=== PATIENT | female | born 1930 | race Hispanic/Latino ===

== ENCOUNTER 2016-11-04 15:59 | Inpatient (IN) | payer MEDICARE, OTHER ==
[~2016-11-04] VITALS: Ht 149.9 cm; Wt 55.8 kg
[~2016-11-04 15:59] MED LIST: ALBU90AE IH; AMLO5TAB2 PO; ASPI81TA3 PO; ATOR20TA65 PO; Al Hydrox/Mg Hydrox/Simeth PO; CLOP75TA28 PO; GABA-502 PO; HYDR-4003 PO; LEVO250T45 PO; MELA5TAB14 PO; POLY17PO6 PO; SENN-133 PO
[2016-11-04 16:03] VITALS: BP 106/58; PULSE 108; RESP 22; O2SAT 81
--- NOTE | 2016-11-04 17:50 | DRSVH ---
PROCEDURE: X-RAY CHEST ONE VIEW, PORTABLE ([id number]) INDICATIONS: 86 year-old female with shortness of breath. TECHNIQUE: One view of the chest was acquired. COMPARISON: [facility], CR, XR CHEST 2VW, 08/18/2016, 15:59. FINDINGS: Surgical changes and devices: None. Lungs and pleura: No pleural effusions or pneumothorax. Lungs are clear. Mediastinum: Mediastinal contours appear normal. Cardiomegaly is unchanged. There is aortic atheros clerosis. Bones and chest wall: No suspicious bony lesions. Nonacute healed left humeral neck fracture is aga in noted. Overlying soft tissues appear unremarkable. IMPRESSION: Mild cardiomegaly, without acute cardiopulmonary disease. Dictated by: Kingston Rucker M.D. on 11/04/2016 at 17:49 Approved by: Kingston Rucker M.D. on 11/04/2016 at 17:49
[2016-11-04 18:15] LABS: BASOPHILS % (AUTO) 0.3 % (0-3); EOSINOPHILS % (AUTO) 0.9 % (0-5); MONOCYTES % (AUTO) 7.6 % (4-12); Mean Corpuscular Hemoglobin 31.8 pg (27.0-35.0); Mean Corpuscular Volume 103.3 fL (81-100); NEUTROPHILS % (AUTO) 77.7 % (40-74); Platelet Count 260 bil/L (150-400)
[2016-11-04 19:07] LABS: TROPONIN T < 0.010 ug/L (0.0-0.011)
[2016-11-04 20:09] VITALS: BP 103/61; PULSE 72; RESP 18; O2SAT 96
--- NOTE | 2016-11-04 20:42 | ED.REPORT ---
HPI-Dyspnea / Wheezing Date of Service Nov 04, 2016 ED Provider: Chriss Henley MD An 86 year old female with a history of dysphagia and recent pneumonia is brought to the ED by family due to cracking sound in her lungs. The pt was admitted for pneumonia four months ago and has been at [facility] for the three months since. She has been at home for the last several days, being seen regularly by a nurse. The pt was seen by her nurse yesterday and was prescribed Levaquin, which seemed to help some but not enough to resolve the crackles. When she was seen today, the nurse recommended that she be taken to the ED. The pt has been eating normally, but her nurse expressed concern for increasing aspirations despite dietary restrictions.The pt denies diaphoresis, dysuria, or shortness of breath in the ED. Per family, the pt appears pale, intermittently short of breath, and has a low grade fever of 99 degrees with chills. She is on 2 L of oxygen normally with two puffs from an inhaler as needed. The inhaler seems to help briefly, but does not relieve the pt's symptoms for long. Nursing Notes Stated Complaint: CRACKLING SOUND WITH BREATHING/SENT FROM NURS HOME Chief Complaint: Respiratory Complaints Nursing Notes Reviewed: Yes ([employer], [employer] not reconciled) Allergies: Coded Allergies: Penicillins (Verified Allergy, Unknown, 08/18/16) Scheduled Amlodipine (Amlodipine) 5 Mg Tablet 5 MG PO DAILY Aspirin Chew (Aspirin Chew) 81 Mg Chew 81 MG PO DAILY Atorvastatin Calcium (Atorvastatin Calcium) 20 Mg Tablet 20 MG PO HS Clopidogrel (Clopidogrel) 75 Mg Tablet 75 MG PO DAILY Gabapentin (Gabapentin) 300 Mg Capsule 300 MG PO TID Levofloxacin (Levofloxacin) 250 Mg Tablet 250 MG PO DAILY Scheduled PRN ([Al Hydrox/Mg Hydrox/Simeth]) 30 ML SUSP 30 ML PO Q6 PRN PRN For Dyspepsia or Heartburn Albuterol Sulfate (Proair Respiclick) 90 Mcg Aer.pow.ba 90 MCG IH QID PRN PRN For Shortness of Breath Hydrocodone-Acetaminophen 5-325 mg (Hydrocodone-Acetaminophen 5-325 mg) 1 Each Tablet 1 TABLET PO DAILY PRN PRN For Pain Melatonin (Melatonin) 5 Mg Tablet 5 MG PO HS PRN PRN For Sleep Polyethylene Glycol 3350 (Miralax) 17 Gm Powd.pack 17 GM PO DAILY PRN PRN For Constipation Sennosides (Senna) 8.6 Mg Tablet 17.2 MG PO BID PRN PRN For Constipation General Time Seen by MD: 20:31 Chief Complaint Other (Crackling breath sounds) Hx Obtained From: Other family... Sudden in Onset?: No Symptom Duration: Since onset Recent Healthcare: Recent doctor visit, Recent hospitalization Similar Sx Previous: Yes Past Medical History Past Medical History Dysphagia Frequent falls secondary to right ankle deformity Pneumonia Past Surgical History Endoscopy Smoking History Never Smoker Social History Other Social History: Good social support Review of Systems Review of Systems Note: pale Constitutional: Reports: Chills, Fever Respiratory: Reports: Shortness of breath (intermittent per family) Cardiovascular: Denies: Chest pain Musculoskeletal: Denies: Back pain, Neck pain Skin: Denies Rash Complete sys rev & neg: except as marked. Female: Denies: Dysuria Physical Exam Initial Vital Signs Vital Signs (First) Date Time Temp Pulse Resp B/P Pulse Ox O2 Delivery O2 Flow Rate FiO2 11/04/16 16:03 36.8 108 22 106/58 81 Room Air 11/04/16 20:09 2 Initial VS: Reviewed, Vital signs abnormal General/Constitutional: Awake, Alert globally weak extremely frail hacking cough Neck: Atraumatic, Supple, Full range of motion Respiratory / Chest: Atraumatic, Breath sounds = bilat, No respiratory distress scattered rhonchi no increased work of breathing Cardiovascular: Heart rate NL, Regular rhythm, Heart sounds NL ENT: Atraumatic, Airway patent, Mucous membranes moist Abdomen: Atraumatic, Soft, Non-tender Back: Atraumatic, Full range of motion Lower Extremity / Pelvis / MS: Atraumatic, Full range of motion, No edema Skin: Atraumatic, Color NL, No rash, Warm, Dry Neurologic: Oriented X3, Speech NL, No motor deficits, No sensory deficits Head / Eyes: Atraumatic, Normocephalic, PERRL, EOMI Upper Extremity / MS: Atraumatic, Full range of motion Psychiatric: Affect NL, Mood NL Interpretation & Diagnostics Lab Results Interpretation Result Diagram: 11/04/16 1750 11/04/16 1750 Test 11/04/16 17:50 11/04/16 18:10 White Blood Count 12.3th/mm3 (3.8-10.1) Red Blood Count 3.68mil/mm3 (3.90-5.20) Hemoglobin 11.7g/dL (12.0-15.6) Hematocrit 38.0% (35.0-46.0) Mean Corpuscular Volume 103.3fL (81-100) Mean Corpuscular Hemoglobin 31.8pg (27.0-35.0) Mean Corpuscular Hemoglobin Concent 30.8% (32.0-37.0) Red Cell Distribution Width 13.2% (12.3-15.4) Platelet Count 260bil/L (150-400) Neutrophils (%) (Auto) 77.7% (40-74) Lymphocytes (%) (Auto) 13.0% (14-46) Monocytes (%) (Auto) 7.6% (4-12) Eosinophils (%) (Auto) 0.9% (0-5) Basophils (%) (Auto) 0.3% (0-3) Sodium Level 144mEq/L (134-144) Potassium Level 4.6mEq/L (3.5-5.2) Chloride Level 103mEq/L (97-108) Carbon Dioxide Level 31mmol/L (18-29) Blood Urea Nitrogen 54mg/dL (8-27) Creatinine 1.57mg/dL (0.57-1.00) Estimat Glomerular Filtration Rate 45mL/min (>59) Glucose Level 99mg/dL (60-99) Calcium Level 9.1mg/dL (8.5-10.1) Total Bilirubin 0.4mg/dL (0.0-1.2) Aspartate Amino Transf (AST/SGOT) 11U/L (0-50) Alanine Aminotransferase (ALT/SGPT) 6U/L (0-32) Alkaline Phosphatase 55U/L (25-165) Troponin T < 0.010ug/L (0.0-0.011) Pro-B-Type Natriuretic Peptide 2407pg/mL (0-738) Total Protein 7.5g/dL (6.4-8.4) Albumin 2.9g/dL (3.4-5.0) Lactic Acid Level 1.1mmol/L (0.4-2.0) Hold Gaston Top Tube Received (Received) Lab Results Interpretation: CBC apositivie leukocytosis CMP mild renal insufficiency Blood Cultures 2 pending X-Ray Chest Interpretation Chest Xray Interpretation: IMPRESSION: Mild cardiomegaly, without acute cardiopulmonary disease. Dictated by: Kingston Rucker M.D. on 11/04/2016 at 17:49 Approved by: Kingston Rucker M.D. on 11/04/2016 at 17:49 Interpretation / Wet Read by: Interpret - Radiologist Re-Eval/Medical Decision Med Decision/Clinical Course This is an 86-year-old female since with increasing cough, shortness breath and concern for aspiration. Patient's apparently recently been seen by physical therapy for it has been a strong concern for progressive aspiration risk, she is now on thickened liquids and a neurology referral is about to be requested ( according to the family they have an appointment with the PCP on Friday of this week (the process of obtaining a neurology referral). Patient's been recovering at [facility] [place], and recently had a holiday the family, and prescription not entirely clear to me she still [facility] or the family at the present, but has had nursing checks daily and has been concerned about her developing a pneumonia recent cough so she was started on Levaquin yesterday. However she is still audibly wheezing, worsening cough, profound fatigue, ongoing concerns for aspiration, possibly a lower oxygen. She has been on oxygen in the past month or 2 L, but was not able to bring oxygen with her when she came to the emergency department, she was significantly hypoxic with a sat of 81 on arrival Exam she does have a cough, she is extremely frail in appearance. She is scattered rhonchi throughout. She is profoundly globally weak. Chest x-ray is limited, no definite infiltrate is evident. Motor is notable for positive leukocytosis. We will have street and findings are highly suspicious for ongoing pneumonia, with aspiration being high risk. The hospital protocol and Clinda plus Levaquin, so given the patient concerned Levaquin yesterday this is the regimen being started here now. She has been drawn. Being admitted for continued management. A formal speech evaluation may be required to facilitate neurology follow-up. Case has been discussed with hospitalist. Source of Hx: Old records Re-Evaluation/Progress : Time of Eval: 20:31 Patient Status: Condition unchanged Re-Evaluation/Progress Note: Pt informed of the need for admission during the initial interview. Pt and family understand and agree with the plan. All questions are addressed at this time. Consultation : Referral / Consult Name: Cherri Gonzalez MD Consulted With: Hospitalist Call Returned at: 20:54 Special Delivery Clerk: Agrees with eval, Agrees with plan, Accepts admit Note: Spoke to Dr. Gonzalez, hospitalist, regarding pt's case. Dr. Gonzalez agrees with the evaluation and agrees to admit the pt. Differential Diagnosis: Positive: Pneumonia, Negative: Acute coronary syndrome, Cardiogenic shock, Hypertensive emergency , PSVT, Pneumothorax, Pulmonary embolism, Respiratory failure Counseled Regarding: Diagnosis, Lab results, Need for admission Discharge & Departure Impression: Primary Impression: Pneumonia Pneumonia type: due to unspecified organism Laterality: unspecified laterality Lung location: unspecified part of lung Qualified Code: B99.9 - Unspecified infectious disease Additional Impression: Aspiration pneumonia Aspiration pneumonia type: unspecified Laterality: unspecified laterality Lung location: unspecified part of lung Qualified Code: J69.0 - Pneumonitis due to inhalation of food and vomit Disposition: ADMITTED TO HOSPITAL Discharge Condition All VS Reviewed: Yes Condition: Stable Referrals: Alondra Ferris PA-C (PCP) Johny Attestation Portions of this note were transcribed by Mary Gilbert. I, Dr. Henley personally performed the history, physical exam and medical decision-making; I reviewed and confirmed the accuracy of the information in the transcribed note. Signed by: Johny Baltazar, 11/04/2016, 21:49 copies to: Alondra Ferris PA-C, Matthew F MD Nov 04, 2016 20:42 MARY GILBERT Nov 04, 2016 21:07
[2016-11-04] MEDS ORDERED: levoFLOXacin Inj 750 MG in IV Premix 1 EACH IV ONE (20:55)
[2016-11-04] MEDS ORDERED: Clindamycin Inj 900 MG in IV Premix 1 EACH IV ONE (20:55)
[2016-11-04] MEDS ORDERED: Alum-Mag Hydrox-Simeth 30 mL Suspension PO PRN ×2 (21:20→21:45)
[2016-11-04] MEDS ORDERED: Ondansetron 2 mg/mL 2 mL Inj IVPUSH PRN ×2 (21:20→21:45)
[2016-11-04] MEDS ORDERED: Polyethylene Glycol (PEG) 17 Gm Powder PO PRN (21:45)
[2016-11-04] MEDS: 0.9% Sodium Chloride 1,000 ML IV SCH (22:10)
[2016-11-04 23:13] VITALS: BP 122/63; PULSE 75; RESP 18; O2SAT 90
[2016-11-04 23:56] VITALS: BP 94/58; PULSE 69; RESP 16; O2SAT 96
--- NOTE | 2016-11-05 02:03 | PCM.HPMED ---
Subjective Date of Service Nov 04, 2016 Primary Provider: Admitting Physician: Cherri Gonzalez MD Primary Care Physician: Alondra Ferris PA-C Attending Physician: Cherri Gonzalez MD Chief Complaint: Crackles on lung auscultation History of Present Illness: Patient is an 86-year-old female with dysphagia and recent pneumonia presenting with crackles on auscultation. The patient was admitted for pneumonia in August 2016 and recently completed her rehabilitation at [facility]. Per patient's family, the patient has had a cough over the past 3-4 days. The patient is being seen by home health nurse who recently prescribed the patient levofloxacin for suspected pneumonia. The patient was seen by the nurse today who recommended the patient be brought to [facility] ED for further evaluation for shortness of breath and persistent crackles on auscultation. The patient uses supplemental oxygen 2L at home. Review of Systems: A comprehensive review of systems was conducted with the patient and found to be negative except as above in the History of Present Illness. 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 External ears without defect. Pupils equal, round, and reactive to light. Anicteric sclerae, moist conjunctivae, and no lid lag. Oropharynx free of erythema and cobble stoning with moist mucosa. No teeth upper and lower. Nasal cannula in place. Neck: Supple. No jugular venous distension. No lymphadenopathy or thyromegaly. Cardiovascular: Distant heart sounds but no murmurs, rubs, or gallops appreciated. Regular rate and rhythm. Pulmonary: Clear to auscultation bilaterally with no crackles, wheezes, or rhonchi. Normal respiratory effort with no use of accessory muscles. Abdomen: Bowel tones present. Soft, nontender, nondistended. No hepatosplenomegaly or masses appreciated. Extremities: No clubbing, cyanosis, edema, or lymphadenopathy appreciated. Skin: Normal temperature, turgor, and texture; no rash, ulcers, or subcutaneous nodules appreciated. Neurological: Cranial nerves grossly intact. Lab and Diagnostics Result Diagram: 11/04/16174911/04/161749 X-Rays, CTs and MRIs Date of Service: 11/04/16 1634 PROCEDURE: X-RAY CHEST ONE VIEW, PORTABLE ([id number]) INDICATIONS: 86 year-old female with shortness of breath. TECHNIQUE: One view of the chest was acquired. COMPARISON: [facility], CR, XR CHEST 2VW, 08/18/2016, 15:59. FINDINGS: Surgical changes and devices: None. Lungs and pleura: No pleural effusions or pneumothorax. Lungs are clear. Mediastinum: Mediastinal contours appear normal. Cardiomegaly is unchanged. There is aortic atherosclerosis. Bones and chest wall: No suspicious bony lesions. Nonacute healed left humeral neck fracture is again noted. Overlying soft tissues appear unremarkable. IMPRESSION: Mild cardiomegaly, without acute cardiopulmonary disease. Dictated by: Kingston Rucker M.D. on 11/04/2016 at 17:49 Approved by: Kingston Rucker M.D. on 11/04/2016 at 17:49 Assessment & Plan Patient is an 86-year-old female with dysphagia and recent pneumonia presenting with crackles on auscultation and admitted for pneumonia: 1. Pneumonia. Present on admission. Active -Chest x-ray reads no acute cardiopulmonary process -Likely aspiration pneumonia secondary to dysphagia -Pending studies: procalcitonin, Legionella and Strep pneumo ur ag, Respiratory virus PCR, Influenza screen -Patient continued on levofloxacin (day #3) and started on clindamycin in the ED. Note, patient is allergic to penicillins -Continue levofloxacin 2. Acute kidney injury. Present on admission. Active -Creatinine 1.57 -Likely pre-renal from decreased intake -Monitor I/Os -Avoid nephrotoxin -NS at 75cc/hr -Follow with CMP 3. Chronic dysphagia. Present on admission. Ongoing -Swallow evaluation by Speech 4. Macrocytic anemia, unknown acuity. Present on admission. -Consider B12 and folate levels Patient Status: Patient is admitted under inpatient status with expected length of stay greater than 2 midnights due to severity of presenting symptoms, risk of adverse event, and complexity of treatment plan. GI Prophylaxis: Not indicated VTE Prophylaxis: SCDs Resuscitation Status: DNR/DNI:Do Not Resuscitate/Intubate Attending Statement Pt seen and examined by myself and agree with above plan. Gopal Killian DO Nov 04, 2016 23:10 Cherri Gonzalez MD Nov 08, 2016 19:03
--- NOTE | 2016-11-05 04:10 | NUR ---
Admit Patient arrived to room 1015 around 2330 via ER bed. A&Ox3, answering questions appropriately. On 2L NC. No c/o pain or discomfort. IV patent and infusing. Sputum culture and nasal swab sent to lab. Admit completed with patient to best of her ability and with past hospital stay info. Med rec not complete, patient unable to give medication doses. Order for telemetry. Per isotope technologist, there are no more leads in the hospital to use. FYI page sent to Dr. Killian @ [phone]. Bruising noted to BL arms & legs. Hematoma to left hand from infiltrated IV in ER. Scab noted to top of forehead. Gluts noted to be red from sitting on stretcher, blanchable. Oriented to room and call light. Will continue Q1hour rounding.
[2016-11-05 05:46] VITALS: BP 122/83; PULSE 71; RESP 18; O2SAT 93
[2016-11-05 06:29] LABS: BASOPHILS % (AUTO) 0.2 % (0-3); EOSINOPHILS % (AUTO) 1.6 % (0-5); MONOCYTES % (AUTO) 6.5 % (4-12); Mean Corpuscular Hemoglobin 30.9 pg (27.0-35.0); Mean Corpuscular Volume 103.8 fL (81-100); NEUTROPHILS % (AUTO) 74.4 % (40-74); Platelet Count 257 bil/L (150-400)
[2016-11-05 06:32] LABS: APPEARANCE,URINE SLIGHTLY CLOUDY (CLEAR,HAZY); COLOR,URINE YELLOW (YELLOW); OCCULT BLOOD,URINE TRACE (NEGATIVE); PH,URINE 5.5 (5.0-8.0); UROBILINOGEN,URINE NORMAL (NORMAL)
[2016-11-05] MEDS: 0.9% Sodium Chloride 1,000 ML IV SCH ×2 (08:35→12:55)
--- NOTE | 2016-11-05 11:00 | NUR ---
Evaluation completed. Please go to "Notes" then click on "Assessments and Notes" (bottom left corner of screen). Then select appropriate discipline tab on top of screen.
--- NOTE | 2016-11-05 11:00 | NUR ---
Palliative care note D/A: Order for palliative care consult kindly received today from Dr. Magdaleno. Note that pt is primarily Maldivian speaking, will need substance addiction coordinator services. Requesting FCTM for pt. Phone call to Holli at [employer] and she is able to schedule an substance addiction coordinator (Mirtha) from [phone] on 11/06/15. Phone call to pt enoc Del Rosario at [phone]. Unable to leave msg as mailbox full. Left msg at family home at [phone]. Phone call to pt gr son Leo at [phone] and discussed above meeting with him. He notes that family can be present on 11/06/15 at 1200 for FCTM. Msg left for [facility] as to above. P: Palliative care to follow. Victorina MONTEMAYOR, CCM
[2016-11-05 11:30] VITALS: BP 120/61; PULSE 64; RESP 16; O2SAT 96
--- NOTE | 2016-11-05 11:50 | PCM.CONPAL ---
Date of Service Nov 05, 2016 Date of Hospital Admission: Nov 04, 2016 at 21:45 Date of Palliative Consult: Nov 05, 2016 Requesting Provider: Hany Magdaleno MD Reason Palliative Care Consult: Goals of Care Discussion, Other (NPO due to failed swallow test, discuss with family) Reason for Consultation Order for palliative care consult kindly received today from Dr. Magdaleno. Note that pt is primarily Kittitian speaking, will need jig grinder services. Requesting FCTM for pt. Phone call to Holli at Office Services Clerk services and she is able to schedule an jig grinder (Mirtha) from [phone] on 11/06/15. Phone call to pt enoc Del Rosario at [phone]. Unable to leave msg as mailbox full. Left msg at family home at [phone]. Phone call to pt gr son Leo at and discussed above meeting with him. He notes that family can be present on 11/06/15 at 1200 for FCTM to discuss goals. Hospital Unit @time of consult: Orthopedic/Surgical Care (room 1015) Palliative Care Recommendation Summary of palliative recommendations: -Symptom management (Pain/other): per Attending. -DPOA/Advanced Directives/POLST: 1. Code status DNR/DNI 2. Pt and TARA Singh both report to Dr. Reyna today that Gena signed a form at [facility] that talks about "how to treat her when she is dying," (Possibly a POLST?) Samantha says, Gena does not want anything aggressive done, that she wants to be comfortable and go to God. Tomorrow, Palliative Care team will meet with family and Kittitian-speaking jig grinder from 12noon to 1330pm to clarify POLST and possibly complete a new form. 3. Dr. Reyna called [facility] and asked their medical records dept to fax a copy of POLST and DPOA paperwork (if available) to our office today. Note: [facility] faxed us 2 forms: a POLST and a DPOA. 4. Pre-existing POLST: signed on 08/24/[address] Deo Trimble and discussed with Son and Patient, states: CPR with limited interventions, use antibiotics if life can be prolonged and no artificial nutrition by tube. 5. Pre-existing DPOA form signed by patient on 08-20-16 lists DPOA for healthcare as: 1. Samantha Jones (DIL) 2. Miguel Ángel Jones (son) 3. Leo Jones (grandson) 5. Today, ST reports to Dr. Reyna that patient has been tested (as outpatient recently) and silently aspirates, even with honey-thick and nectar thick liquids. ST made patient NPO. Prior to receiving the above POLST from [facility] , Dr. Reyna called Samantha and asked if Gena would want a PEG tube or if she would want to go ahead and eat, even if she aspirates. Samantha says Gena would not want any tubes to feed her. Samantha will come in today to sign the consent to feed Gena, despite ST orders. Dr. Reyna informed RN, Front RN motel front desk clerk and signed form to allow 1:1 feeding today as soon as Samantha also signs paperwork. -Family/emotional support: strong--> Son Miguel Ángel and DIL Samantha and grandson Leo. Samantha is patient's primary CG in home and helps Gena take her medications when she is at home. -Spiritual support: not discussed today Patient Goals: TBD (see red bolded sentence above). Problems: Resuscitation Status Resuscitation Status: DNR/DNI:Do Not Resuscitate/Intubate Pt History History of Present Illness Patient is an 86-year-old female with dysphagia and recent pneumonia presenting with crackles on auscultation. The patient was admitted for pneumonia in August 2016 and recently completed her rehabilitation at [facility]. Per patient's family, the patient has had a cough over the past 3-4 days. The patient is being seen by home health nurse who recently prescribed the patient levofloxacin for suspected pneumonia. The patient was seen by the nurse today who recommended the patient be brought to [facility] ED for further evaluation for shortness of breath and persistent crackles on auscultation. The patient uses supplemental oxygen 2L at home. She was admitted for pneumonia today (2016). Subjective: Dr. Reyna met with patient today and pt is able to communicate in a mixture of Japanese/Kittitian. She states she has no pain or shortness of breath , but is hungry and wants to eat. She says that at home she doesn't have any trouble with soft foods, but sometimes coughs after drinking water. She would like permission to eat. Dr. Reyna counsels her that she will call [employer] and get a form signed that will allow the nurses to help her eat very carefully. On questioning about her wishes in case of serious illness, she says she signed "something" back at [facility]. 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 Prior to that, she lived at home on [address]. Allergy Allergies Reviewed: Yes Medications Current Medications: Current Medications Sodium Chloride 1,000 ml @ 75 mls/hr [id number] IV Last administered on 11/04/16 22:10; Admin Dose 100 MLS/HR; Start 11/04/16 at 21:16 Al Hydrox/Mg Hydrox/Simethicone 30 ml Q6 PRN PO; Start 11/04/16 at 21:20; Stop 11/04/16 at 21:54; Status DC Ondansetron HCl Dose range: 4 mg to 8 mg Q4H PRN IVPUSH; Start 11/04/16 at 21:20 ; Stop 11/04/16 at 21:54; Status DC Acetaminophen 975 mg Q6H PRN PO; Start 11/04/16 at 21:20; Stop 11/04/16 at 21:55 ; Status DC Al Hydrox/Mg Hydrox/Simethicone 30 ml Q6H PRN PO; Start 11/04/16 at 21:45 Ondansetron HCl 4 to 8 mg Q4H PRN IVPUSH; Start 11/04/16 at 21:45 Senna 17.2 mg BID PRN PO; Start 11/04/16 at 21:45 Polyethylene Glycol 17 gm DAILY PRN PO; Start 11/04/16 at 21:45 Acetaminophen 650 mg 650 mg Q4H PRN PO Last administered on 11/04/16 22:53; Admin Dose 650 MG; Start 11/04/16 at 21:45 Levofloxacin/ Dextrose/Premix 150 ml @ 100 mls/hr Q48H IV; Start 11/06/16 at 20: 30 Scheduled Amlodipine (Amlodipine) 5 Mg Tablet 5 MG PO DAILY Aspirin Chew (Aspirin Chew) 81 Mg Chew 81 MG PO DAILY Atorvastatin Calcium (Atorvastatin Calcium) 20 Mg Tablet 20 MG PO HS Clopidogrel (Clopidogrel) 75 Mg Tablet 75 MG PO DAILY Gabapentin (Gabapentin) 300 Mg Capsule 300 MG PO TID Levofloxacin (Levofloxacin) 250 Mg Tablet 250 MG PO DAILY Scheduled PRN ([Al Hydrox/Mg Hydrox/Simeth]) 30 ML SUSP 30 ML PO Q6 PRN PRN For Dyspepsia or Heartburn Albuterol Sulfate (Proair Respiclick) 90 Mcg Aer.pow.ba 90 MCG IH QID PRN PRN For Shortness of Breath Hydrocodone-Acetaminophen 5-325 mg (Hydrocodone-Acetaminophen 5-325 mg) 1 Each Tablet 1 TABLET PO DAILY PRN PRN For Pain Melatonin (Melatonin) 5 Mg Tablet 5 MG PO HS PRN PRN For Sleep Polyethylene Glycol 3350 (Miralax) 17 Gm Powd.pack 17 GM PO DAILY PRN PRN For Constipation Sennosides (Senna) 8.6 Mg Tablet 17.2 MG PO BID PRN PRN For Constipation Objective Findings Exam Vital Sign - Last Date Time Temp Pulse Resp B/P Pulse Ox O2 Delivery O2 Flow Rate FiO2 11/05/16 08:00 Supplement Oxygen 11/05/16 05:46 36.7 71 18 122/83 93 2.00 Intake and Output 11/04/16 11/04/16 11/05/16 Cumulative From/Thru 15:00 23:00 07:00 11/04/16 16:03 - 11/05/16 05:57 Intake Total 100 ml 1100 ml 1200 ml Output Total 123 ml 123 ml Balance 100 ml 977 ml 1077 ml Intake Oral 400 ml 400 ml IV Total 100 ml 700 ml 800 ml Output Urine Total 123 ml 123 ml # Bowel Movements 0 0 General: Alert/Oriented x3, Person, Place, Time, No acute distress, Other (thin , wide awake, cooperative with exam, interactive, speaks in sentences without SOB) HEENT: Atraumatic, PERRLA, EOMI, Mucous Membranes Dry, Other ( speech is difficult to understand as she is adentulous and speaks a mix of Japanese and Kittitian) Heart: Normal S1, S2, No Murmurs/Rubs/Gallops, Dysrhythmia Present ( irregularly irregular, no skipped beats) Lungs: Diminished, Coarse, Rhonchorus (at bases) Abdomen: Bowel Tones x4, Soft, Non Tender Neuro: Exam Intact, Follows Commands, Spontaneous Eye Opening, Speech, Weakness (generalized mild weakness) Extremities: Pulses Palpable x4, Warm, No Edema Lab/Diagnostics Lab and Imaging results reviewed in detail in EMR. Negative for Influenza A and Strep pneumonia. Positive for arias virus. Time spent Total time 70 minutes; >50% face to face with patient and/or family, providing counselling regarding plans and recommendations, and in care coordination with his/her medical teams. Included in above time, I spent 20 minutes counseling Samantha about possible PEG vs. signing paperwork to continue 1:[address] advise. copies to: Alondra Ferris PA-C, Cynthia MD Nov 05, 2016 11:49
--- NOTE | 2016-11-05 11:53 | NUR ---
Palliative Care Palliative Care received order from Dr Magdaleno 11/05/16 to assist with goals of care. Patient is an 86 year old woman with dysphagia and recent pneumonia. She was admitted 11/04/16 for care of pneumonia. Miguel Ángel (and Samantha) José (son) [phone], Leo Kumar (grandson) [phone] Palliative Care will see 11/06/16. FCTM 11/06 at 12 pm with package dyer. Olivia Britt
[2016-11-05] MEDS ORDERED: Alum-Mag Hydrox-Simeth 30 mL Suspension PO PRN (15:40)
[2016-11-05] MEDS ORDERED: HYDROcodone-APAP 5-325 mg Tablet PO PRN (15:40)
[2016-11-05] MEDS ORDERED: Albuterol 2.5 mg/3 mL Inhalation Solution NEB PRN (16:00)
[2016-11-05 16:11] VITALS: BP 115/58; PULSE 66; RESP 18; O2SAT 93
--- NOTE | 2016-11-05 16:46 | NUR ---
Diet/precautions Family signed "diet against advice" waiver. Pt taking small bits of dysphag mech diet and nectar thick juice with some coughing. Palliative care meeting scheduled for tomorrow (Fri) noon. Droplet precautions for coronavirus.
--- NOTE | 2016-11-05 17:49 | PCM.PNMED ---
Subjective Date of Service Nov 05, 2016 Subjective No new complaints. Italian-speaking patient. Spoke with speech therapist. Speech Therapist says patient has significant dysphagia and she knows her in outpatient visit as well. She recommends palliative care consult Exam Vital Signs Vital Sign - Last Date Time Temp Pulse Resp B/P Pulse Ox O2 Delivery O2 Flow Rate FiO2 11/05/16 16:11 36.8 66 18 115/58 93 Nasal Cannula 2.00 Intake and Output 11/04/16 11/04/16 11/05/16 Cumulative From/Thru 15:00 23:00 07:00 11/04/16 16:03 - 11/05/16 05:57 Intake Total 100 ml 1100 ml 1200 ml Output Total 123 ml 123 ml Balance 100 ml 977 ml 1077 ml Intake Oral 400 ml 400 ml IV Total 100 ml 700 ml 800 ml Output Urine Total 123 ml 123 ml # Bowel Movements 0 0 Exam General: No acute distress, fragile appearing, appropriately interactive HEENT: Normocephalic, atraumatic. External ears without defect. Pupils equal, round, and reactive to light. Anicteric sclerae, moist conjunctivae, and no lid lag. Oropharynx free of erythema and cobble stoning with moist mucosa. No teeth upper and lower. Nasal cannula in place. Neck: Supple. No jugular venous distension. No lymphadenopathy or thyromegaly. Cardiovascular: Distant heart sounds but no murmurs, rubs, or gallops appreciated. Regular rate and rhythm. Pulmonary: Clear to auscultation bilaterally with no crackles, wheezes, or rhonchi. Normal respiratory effort with no use of accessory muscles. Abdomen: Bowel tones present. Soft, nontender, nondistended. No hepatosplenomegaly or masses appreciated. Extremities: No clubbing, cyanosis, edema, or lymphadenopathy appreciated. Skin: Normal temperature, turgor, and texture; no rash, ulcers, or subcutaneous nodules appreciated. Neurological: Cranial nerves grossly intact. IVs and Medications Medications Reviewed: Medications were reviewed in detail Lab and Diagnostics Result Diagram: 11/05/1652411/05/1625 X-Rays, CTs and MRIs Date of Service: 11/04/16 6834 PROCEDURE: X-RAY CHEST ONE VIEW, PORTABLE ([id number]) INDICATIONS: 86 year-old female with shortness of breath. TECHNIQUE: One view of the chest was acquired. COMPARISON: [facility], CR, XR CHEST 2VW, 08/18/2016, 15:59. FINDINGS: Surgical changes and devices: None. Lungs and pleura: No pleural effusions or pneumothorax. Lungs are clear. Mediastinum: Mediastinal contours appear normal. Cardiomegaly is unchanged. There is aortic atherosclerosis. Bones and chest wall: No suspicious bony lesions. Nonacute healed left humeral neck fracture is again noted. Overlying soft tissues appear unremarkable. IMPRESSION: Mild cardiomegaly, without acute cardiopulmonary disease. Dictated by: Kingston Rucker M.D. on 11/04/2016 at 17:49 Approved by: Kingston Rucker M.D. on 11/04/2016 at 17:49 Assessment & Plan Patient is an 86-year-old female with dysphagia and recent pneumonia presenting with crackles on auscultation and admitted for pneumonia: #. Suspected aspiration Pneumonia. Present on admission. Active -Chest x-ray reads no acute cardiopulmonary process -Likely aspiration pneumonia secondary to dysphagia - procalcitonin 0.34, Legionella and Strep pneumo ur ag negative, Respiratory virus PCR positive for coronavirus, Influenza screen negative -Patient continued on levofloxacin (day #4) and started on clindamycin in the ED. we will continue with Levaquin only -Continue levofloxacin #UTI, acute -Pyuria on urinalysis noted. Continue Levaquin renally adjusted. -Urine culture pending #. Acute kidney injury. Present on admission. Active -Creatinine 1.57 -Likely pre-renal from decreased intake -Monitor I/Os -Avoid nephrotoxin -NS at 75cc/hr -Follow with CMP #. Chronic dysphagia. Present on admission. Ongoing -Failed Swallow evaluation -Palliative consulted. They will talk to patient and family with roll cleaner tomorrow -Nothing by mouth. Will consider PEG depending on outcome of palliative discussion #. Macrocytic anemia, unknown acuity. Present on admission. Patient Status: Pending hospital course GI Prophylaxis: Not indicated VTE Prophylaxis: SCDs VTE Mechanical Devices: Intermittant Pneumatic CD Resuscitation Status: DNR/DNI:Do Not Resuscitate/Intubate Hany Magdaleno MD Nov 05, 2016 17:49
[2016-11-05 20:15] VITALS: BP 156/78; PULSE 74; RESP 21; O2SAT 93
--- NOTE | 2016-11-06 00:27 | NUR ---
Activity/pain Patient complained of left lateral side pain at a 5/10. Acetaminophen 625 mg administered. Medications taken successfully with pudding. No choking or any signs of aspiration. Patient asking to use bedpan to urinate. Patient is resting comfortably.
[2016-11-06 00:42] VITALS: BP 138/74; PULSE 75; RESP 20; O2SAT 92
[2016-11-06] MEDS: 0.9% Sodium Chloride 1,000 ML IV SCH (02:23)
[2016-11-06 04:48] VITALS: BP 147/83; PULSE 79; RESP 22; O2SAT 97
[2016-11-06] MEDS: HYDROcodone-APAP 5-325 mg Tablet PO PRN ×2 (06:07→21:09)
[2016-11-06 09:09] VITALS: BP 114/75; PULSE 73; RESP 20; O2SAT 95
--- NOTE | 2016-11-06 10:58 | NUR ---
Oxygen pt on 2L NC satting mid 90s, this is her home dose, no SOB/resp distress. Pt ate breakfast without any problems, she understands why she needs thickened fluids.
[2016-11-06] MEDS ORDERED: Atropine 1% 5 mL Ophthalmic Solution PO PRN (12:30)
[2016-11-06] MEDS ORDERED: Morphine 100 mg/100 mL NS 100 MG in IV Premix 1 EACH IV PRN (12:30)
[2016-11-06] MEDS ORDERED: Haloperidol 5 mg/mL Inj IVPUSH PRN (12:30)
--- NOTE | 2016-11-06 12:44 | PCM.PALLBR ---
Palliative Care Recommendation Summary of palliative recommendations: -Symptom management (Pain/other): Transitioning to comfort care. End-of-life order set activated with routine medications. Morphine drip as needed for symptoms not relieved with bolus medications. Palliative medicine will, of course, continue to follow and adjust medications to optimize comfort in the coming days. -DPOA/Advanced Directives/POLST: 1. Code status DNR/DNI/comfort care 2. hospital pharmacy technician will begin evaluating disposition options with the family. Family members are very fearful about trying to take the patient home, even with hospice support, and expressed the feeling that "that would be disastrous" . Will plan on monitoring her response to comfort care treatment over the next 24-48 hours at least- there is a significant possibility she may here in the very near future. -Family/emotional support: strong--> Son Miguel Ángel and [id number] Samantha and grandson Leo. Samantha is patient's primary CG in home and helped Gena take her medications when she was at home. Family expresses very clearly that they are not at all comfortable trying to take the patient home for end-of-life care, however. -Spiritual support: [employer] referral made today as part of comfort care protocol Problems: End of Life Preferences DO NOT RESUSCITATE/DO NOT INTUBATE/comfort care Goals of Care Patient comfort Disposition To be determined Resuscitation Status Resuscitation Status: DNR/DNI:Do Not Resuscitate/Intubate POLST Updates/Changes Previous POLST?: Yes POLST Review Outcome: Form Voided . Advanced Care Planning Address: POLST, Comfort care Pain: None Total time 65 minutes; >50% face to face with patient and family, providing counselling regarding plans and recommendations, and in care coordination with her medical teams. Of the above total time, 30 minutes counseling for advanced care planning with the patient's family Palliative Brief Note Date of Service Nov 06, 2016 . Return to see patient and to meet with family. Prior to visiting, reviewed her updated records in the EMR in detail and spoke with her bedside nurse. Resting reasonably comfortably today. Physical exam shows a very frail elderly woman, quietly confused. In no obvious distress. Vital signs noted. Lungs with few scattered crackles, heart sounds regular, abdomen soft and benign. Previous lab and imaging studies reviewed in detail. Spoke at length with the patient's family including son, [id number] and grandson. Reviewed her recent medical issues, speech at [facility] [place], brief return home and then recurrence of symptoms leading to this hospitalization. Reviewed her history of abnormal barium swallow was with evidence of chronic aspiration, and the implications of those findings. Family members were all in agreement that they did not want to pursue further life prolonging care. They have prior experience with close relatives who suffered lingering and do not want the patient to experience that. We talked about end-of-life/comfort care and possible disposition options- ultimately, disease case manager/discharge planners will review these further with family. For now, however, the family members all agree that they would wish patient transitions to comfort/end-of-life care immediately. The nature of such treatment was explained to them and they understand that as a consequence of medications for comfort the patient may become more sleepy and less responsive and this was acceptable to them. Deo Jimenez MD Nov 06, 2016 12:44
--- NOTE | 2016-11-06 15:10 | NUR ---
Gave access and faxed facesheet to Aretah bob MSW
--- NOTE | 2016-11-06 15:47 | NUR ---
Palliative care note FCTM D/A : Met with family (son and dil as well as grandson) to explore pt needs and goals. They understand that pt is slowing down and are agreeable to comfort measures. They indicate that having pt home was very difficult and it appears that coping with someone dying at the family home might be difficult for them. They express preference for SNF dc. Per review of insurance, pt does not have Medicaid, also verified this with family. Unclear if comfort care would be covered as a skilled need. Expressed to family that WIRE STITCHER OPERATOR will discuss further re: dispo needs. Met with Jackie AYERS dcp to explain. She will call them this afternoon. Have supplied her with phone numbers to contact zeynep Singh dil. Clariied with family, per Dr. Jimenez, that pt is now able to eat whatever is pleasing to her. P: Palliative care to follow. Victorina MONTEMAYOR , CCM
--- NOTE | 2016-11-06 16:06 | PCM.PNMED ---
Subjective Date of Service Nov 06, 2016 Subjective denies any new issues/complaints. says overall feels better although still having SOB Exam Vital Signs Vital Sign - Last Date Time Temp Pulse Resp B/P Pulse Ox O2 Delivery O2 Flow Rate FiO2 11/06/16 09:09 36.4 73 20 114/75 95 Nasal Cannula 2.00 Intake and Output 11/05/16 11/05/16 11/06/16 Cumulative From/Thru 15:00 23:00 07:00 11/04/16 16:03 - 11/06/16 06:57 Intake Total 160 ml 2154 ml 3514 ml Output Total 580 ml 900 ml 1603 ml Balance -420 ml 1254 ml 1911 ml Intake Oral 160 ml 413 ml 973 ml IV Total 1741 ml 2541 ml Output Urine Total 580 ml 900 ml 1603 ml # Voids 9 9 # Bowel Movements 0 0 0 General: Alert, Cooperative, No Acute Distress Eyes: Scleral Anicteric Mouth: Mucous Membr Moist/[place] Neck: Supple Chest & Lungs: Chest Wall Normal, Clear to auscultation & percussion Cardiovascular: Regular Rate/Rhythm Abdomen: Non-tender, Non-distended, Normoactive bowel tones, Soft Extremities: No cyanosis/clubbing/edma bilat Neurological: Grossly Neurologically Intact, Normal Speech IVs and Medications Medications Reviewed: Medications were reviewed in detail Lab and Diagnostics Result Diagram: 11/05/1625 11/05/16 0525 X-Rays, CTs and MRIs Date of Service: 11/04/16 1634 PROCEDURE: X-RAY CHEST ONE VIEW, PORTABLE ([id number]) INDICATIONS: 86 year-old female with shortness of breath. TECHNIQUE: One view of the chest was acquired. COMPARISON: [facility], CR, XR CHEST 2VW, 08/18/2016, 15:59. FINDINGS: Surgical changes and devices: None. Lungs and pleura: No pleural effusions or pneumothorax. Lungs are clear. Mediastinum: Mediastinal contours appear normal. Cardiomegaly is unchanged. There is aortic atherosclerosis. Bones and chest wall: No suspicious bony lesions. Nonacute healed left humeral neck fracture is again noted. Overlying soft tissues appear unremarkable. IMPRESSION: Mild cardiomegaly, without acute cardiopulmonary disease. Dictated by: Kingston Rucker M.D. on 11/04/2016 at 17:49 Approved by: Kingston Rucker M.D. on 11/04/2016 at 17:49 Assessment & Plan 86-year-old female with dysphagia and recent pneumonia presenting with crackles on auscultation and admitted for pneumonia: # Suspected aspiration Pneumonia. Present on admission. Active - Chest x-ray reads no acute cardiopulmonary process - Likely aspiration pneumonia secondary to dysphagia - procalcitonin 0.34, Legionella and Strep pneumo ur ag negative, - Respiratory virus PCR positive for coronavirus - Patient continued on levofloxacin (day #5) and started on clindamycin in the ED. - not clear to me if clear bacterial infection. will stop Levofloxacin now # Suspected acute UTI, poa. - Pyuria on urinalysis noted. - urine culture showing mixed jah. - post treatment with Abx as noted aboev - stop Abx # Acute kidney injury. Present on admission. Active - Likely pre-renal from decreased intake - Monitor I/Os - Avoid nephrotoxin # Chronic dysphagia. Present on admission. Ongoing - Failed Swallow evaluation # Goals of care - appreciate palliative care consult. will f/u w/ recs - per report by Dr. Jimenez patient has opted to move towards comfort care only at this point. Dispo: 1-2 days GI Prophylaxis: Not indicated VTE Prophylaxis: SCDs VTE Mechanical Devices: Intermittant Pneumatic CD Resuscitation Status: DNR/DNI:Do Not Resuscitate/Intubate Time spent 35 min Lux Burton Nov 06, 2016 16:06
[2016-11-06] MEDS ORDERED: levoFLOXacin Inj 750 MG in IV Premix 1 EACH IV SCH (20:30)
[2016-11-06 22:00] VITALS: BP 122/71; PULSE 75; RESP 18; O2SAT 96
[2016-11-07 01:19] LABS: APPEARANCE,URINE CLOUDY (CLEAR,HAZY); COLOR,URINE YELLOW (YELLOW); OCCULT BLOOD,URINE MODERATE (NEGATIVE); UROBILINOGEN,URINE NORMAL (NORMAL)
[2016-11-07 01:30] VITALS: BP 118/76; PULSE 72; RESP 18; O2SAT 94
[2016-11-07 05:36] VITALS: BP 122/70; PULSE 80; RESP 16; O2SAT 96
[2016-11-07] MEDS: Artificial Tears 15 mL Ophthalmic Solution AFFECT_EYE PRN (09:31)
[2016-11-07] MEDS ORDERED: ATRO2DRO4 SL (10:03)
[2016-11-07] MEDS ORDERED: LRZ2B30 SL/PO (10:03)
[2016-11-07] MEDS ORDERED: MORP100S5 SL/PO (10:03)
[2016-11-07] MEDS ORDERED: SCOP1PAT TD (10:03)
--- NOTE | 2016-11-07 10:23 | PCM.DIMED ---
Discharge Instructions Date of Service Nov 07, 2016 Dates of Hospitalization Nov 04, 2016 at 21:45 Discharge Diagnosis Discharge Diagnosis # Suspected aspiration Pneumonia. Present on admission. Presumed improving # Suspected acute UTI, poa. - Pyuria on urinalysis noted. - urine culture showing mixed jah suggesting possible contamination. - post treatment with antibiotics. # Acute kidney injury. Present on admission. Active - Likely pre-renal from decreased intake # Chronic dysphagia. Present on admission. Ongoing - Failed Swallow evaluation # Goals of care - DNR/DNI and comfort care only at this point. Diet Other (as tolerated) Activity Other (as tolerated) Patient Instructions Follow-up plan 1. Followup with primary care provider as needed. Follow-up Provider: Alondra Ferris PA-C, Masoud Nov 07, 2016 10:23
[2016-11-07] MEDS: 0.9% Sodium Chloride 1,000 ML IV SCH (11:03)
--- NOTE | 2016-11-07 11:45 | NUR ---
Pain Medication Pt stated that she had 8/10 pain in her back and legs. Offered pt pain medication. Went to administer pain medication and pt refused. Will continue to monitor.
--- NOTE | 2016-11-07 17:22 | PCM.PNMED ---
Subjective Date of Service Nov 07, 2016 Subjective denies any new issues/complaints. Exam Vital Signs Vital Sign - Last Date Time Temp Pulse Resp B/P Pulse Ox O2 Delivery O2 Flow Rate FiO2 11/07/16 05:36 36.6 80 16 122/70 96 Nasal Cannula 2.00 Intake and Output 11/06/16 11/06/16 11/07/16 Cumulative From/Thru 15:00 23:00 07:00 11/04/16 16:03 - 11/07/16 05:36 Intake Total 440 ml 213 ml 4167 ml Output Total 970 ml 275 ml 2848 ml Balance -530 ml -62 ml 1319 ml Intake Oral 440 ml 213 ml 1626 ml IV Total 2541 ml Output Urine Total 970 ml 275 ml 2848 ml # Voids 7 16 # Bowel Movements 0 0 Exam General: Alert, Cooperative, No Acute Distress Eyes: Scleral Anicteric Mouth: Mucous Membr Moist/[place] Neck: Supple Chest & Lungs: Chest Wall Normal, Clear to auscultation bilat Cardiovascular: Regular Rate/Rhythm Abdomen: Non-tender, Non-distended, Normoactive bowel tones, Soft Extremities: No cyanosis/clubbing/edema bilat Neurological: Grossly Neurologically Intact, Normal Speech IVs and Medications Medications Reviewed: Medications were reviewed in detail Lab and Diagnostics Result Diagram: 11/05/1652411/05/16524 X-Rays, CTs and MRIs Date of Service: 11/04/16 1634 PROCEDURE: X-RAY CHEST ONE VIEW, PORTABLE ([id number]) INDICATIONS: 86 year-old female with shortness of breath. TECHNIQUE: One view of the chest was acquired. COMPARISON: [facility], CR, XR CHEST 2VW, 08/18/2016, 15:59. FINDINGS: Surgical changes and devices: None. Lungs and pleura: No pleural effusions or pneumothorax. Lungs are clear. Mediastinum: Mediastinal contours appear normal. Cardiomegaly is unchanged. There is aortic atherosclerosis. Bones and chest wall: No suspicious bony lesions. Nonacute healed left humeral neck fracture is again noted. Overlying soft tissues appear unremarkable. IMPRESSION: Mild cardiomegaly, without acute cardiopulmonary disease. Dictated by: Kingston Rucker M.D. on 11/04/2016 at 17:49 Approved by: Kingston Rucker M.D. on 11/04/2016 at 17:49 Assessment & Plan 86-year-old female with dysphagia and recent pneumonia presenting with crackles on auscultation and admitted for pneumonia: # Suspected aspiration Pneumonia. Present on admission. Active - Chest x-ray reads no acute cardiopulmonary process - Likely aspiration pneumonia secondary to dysphagia - procalcitonin 0.34, Legionella and Strep pneumo ur ag negative, - Respiratory virus PCR positive for coronavirus - Patient continued on levofloxacin (day #5) and started on clindamycin in the ED. - not clear to me if clear bacterial infection. Stopped Levofloxacin on 11/06 # Suspected acute UTI, poa. - Pyuria on urinalysis noted. - urine culture showing mixed jah. - post treatment with Abx as noted above # Acute kidney injury. Present on admission. Active - Likely pre-renal from decreased intake # Chronic dysphagia. Present on admission. Ongoing - Failed Swallow evaluation # Goals of care - appreciate palliative care consult. - per report by Dr. Jimenez patient has opted to move towards comfort care only at this point. Dispo: d/c to SNF on comfort path today has been delayed due to bed availability. GI Prophylaxis: Not indicated VTE Prophylaxis: SCDs VTE Mechanical Devices: Intermittant Pneumatic CD Resuscitation Status: DNR/DNI:Do Not Resuscitate/Intubate Lux Burton Nov 07, 2016 17:22
[2016-11-07 19:26] VITALS: BP 142/68; PULSE 82; RESP 18; O2SAT 94
[2016-11-07 22:12] VITALS: BP 139/74; PULSE 76; RESP 20; O2SAT 94
[2016-11-07] MEDS ORDERED: diphenhydrAMINE 25 mg Capsule PO PRN (23:30)
--- NOTE | 2016-11-08 05:48 | NUR ---
Low urine output / aspiration risk Pt voids very small amounts on frequent uses of bedpan. Bladder scan only shows approx 250 ml. Pt states not too uncomfortable. Denies significant pain, using Tylenol for comfort. IV access was leaking, Md authorized no IV access unless needed. Currently not taking any comfort meds by IV, able to swallow pills in applesauce; observed using good swallow precaution technique. Hourly rounding ongoing.
[2016-11-08] MEDS: Artificial Tears 15 mL Ophthalmic Solution AFFECT_EYE PRN (08:01)
--- NOTE | 2016-11-08 10:30 | NUR ---
Spoke with Michaela Treat director credit risk at [facility] and they can accept today.
--- NOTE | 2016-11-08 10:43 | NUR ---
Social Work: Discharge Plan Data and Assessment: rotary shear worker helper spoke with patient's NOK Samantha Kumar, and notified her that the patient was accepted to [facility] on the Comfort track. She voiced understanding and was in agreement with the patient transferring to [facility]. Transportation Engineering Technician spoke with Bernice at [facility] and she will reach out to Samantha [place] to answer any questions she may have. Bernice will schedule transportation to pick the patient up at 1pm. WILBER notified patient's nurse. SW will continue to follow. Plan: Patient will discharge to [facility] today. Bernice with [facility] is scheduling transportation to pick the patient up at 1pm. WILBER will continue to follow. Marina Mendoza, LAURA, ACM
[2016-11-08] MEDS: 0.9% Sodium Chloride 1,000 ML IV SCH (11:15)
--- NOTE | 2016-11-08 13:27 | NUR ---
Discharge Pt was d/c'd from room 1015 at 1325 to [facility] via transportation from [facility]. All belongings with pt. IV d/c'd yesterday. No items in the safe or in the pharmacy. Report called into Dino EVANGELISTA at [facility].
--- NOTE | 2016-11-08 21:26 | PCM.DC.MED ---
Discharge Summary Date of Service Nov 08, 2016 Dates of Hospitalization Date of Hospital Admission Nov 04, 2016 at 21:45 Date of Discharge: Nov 08, 2016 Providers: Admitting Physician: Cherri Gonzalez MD Primary Care Physician: Alondra Ferris PA-C Attending Physician: Cherri Gonzalez MD Diagnosis at Time of Discharge Diagnosis at Time of Discharge # Suspected aspiration Pneumonia. Present on admission. Presumed improving # Suspected acute UTI, poa. - Pyuria on urinalysis noted. - urine culture showing mixed jah suggesting possible contamination. - post treatment with antibiotics. # Acute kidney injury. Present on admission. Active - Likely pre-renal from decreased intake # Chronic dysphagia. Present on admission. Ongoing - Failed Swallow evaluation # Goals of care - DNR/DNI and comfort care only at this point. Consultations Palliative care Procedures XRay, CTs & MRIs Date of Service: 11/04/16 1634 PROCEDURE: X-RAY CHEST ONE VIEW, PORTABLE ([id number]) INDICATIONS: 86 year-old female with shortness of breath. TECHNIQUE: One view of the chest was acquired. COMPARISON: [facility], , XR CHEST 2VW, 08/18/2016, 15:59. FINDINGS: Surgical changes and devices: None. Lungs and pleura: No pleural effusions or pneumothorax. Lungs are clear. Mediastinum: Mediastinal contours appear normal. Cardiomegaly is unchanged. There is aortic atherosclerosis. Bones and chest wall: No suspicious bony lesions. Nonacute healed left humeral neck fracture is again noted. Overlying soft tissues appear unremarkable. IMPRESSION: Mild cardiomegaly, without acute cardiopulmonary disease. Dictated by: Kingston Rucker M.D. on 11/04/2016 at 17:49 Approved by: Kingston Rucker M.D. on 11/04/2016 at 17:49 Brief History Patient is an 86-year-old female with dysphagia and recent pneumonia presenting with crackles on auscultation. The patient was admitted for pneumonia in August 2016 and recently completed her rehabilitation at [facility]. Per patient's family, the patient has had a cough over the past 3-4 days. The patient is being seen by home health nurse who recently prescribed the patient levofloxacin for suspected pneumonia. The patient was seen by the nurse today who recommended the patient be brought to [facility] ED for further evaluation for shortness of breath and persistent crackles on auscultation. The patient uses supplemental oxygen 2L at home. She was admitted for pneumonia today (2016). Subjective: Dr. Reyna met with patient today and pt is able to communicate in a mixture of Estonian/Turkish. She states she has no pain or shortness of breath , but is hungry and wants to eat. She says that at home she doesn't have any trouble with soft foods, but sometimes coughs after drinking water. She would like permission to eat. Dr. Reyna counsels her that she will call DIL Samantha and get a form signed that will allow the nurses to help her eat very carefully. On questioning about her wishes in case of serious illness, she says she signed "something" back at [facility] Course 86-year-old female with dysphagia and recent pneumonia presenting with crackles on auscultation and admitted for pneumonia: Her pneumonia was thought likely secondary to aspiration. She was started on clindamycin as well as Levaquin. The Levaquin was stopped on the fourth. She was also noted to have a probable urinary tract infection which was treated with Levaquin. Due to the patient's declining physical condition, palliative care was consulted and discussed with the family goals of care. The family did not want the patient to be given a PEG tube for prolonged life. It was decided by the patient and her family that the comfort pathway would be more appropriate to her goals of care. [facility] with these goals in mind. She was stable at the time of discharge, though her overall prognosis is poor # Suspected aspiration Pneumonia. Present on admission. Active - Chest x-ray reads no acute cardiopulmonary process - Likely aspiration pneumonia secondary to dysphagia - procalcitonin 0.34, Legionella and Strep pneumo ur ag negative, - Respiratory virus PCR positive for coronavirus - Patient continued on levofloxacin (day #5) and started on clindamycin in the ED. - not clear to me if clear bacterial infection. Stopped Levofloxacin on 11/06 # Suspected acute UTI, poa. - Pyuria on urinalysis noted. - urine culture showing mixed jah. - post treatment with Abx as noted above # Acute kidney injury. Present on admission. Active - Likely pre-renal from decreased intake # Chronic dysphagia. Present on admission. Ongoing - Failed Swallow evaluation # Goals of care - appreciate palliative care consult. - per report by Dr. Jimenez patient has opted to move towards comfort care only at this point. Exam Vital Signs (Last) Date Time Temp Pulse Resp B/P Pulse Ox O2 Delivery O2 Flow Rate FiO2 11/07/16 22:12 37.0 76 20 139/74 94 Room Air 11/07/16 19:26 2.00 Test 11/04/16 17:50 11/04/16 18:10 11/05/16 04:45 11/05/16 05:25 Troponin T < 0.010ug/L (0.0-0.011) Pro-B-Type Natriuretic Peptide 2407pg/mL (0-738) Lactic Acid Level 1.1mmol/L (0.4-2.0) Hold [place] Top Tube Received (Received) Urine Legionella pneumophilia Ag Negative (Negative) White Blood Count 9.2th/mm3 (3.8-10.1) Red Blood Count 3.46mil/mm3 (3.90-5.20) Hemoglobin 10.7g/dL (12.0-15.6) Hematocrit 35.9% (35.0-46.0) Mean Corpuscular Volume 103.8fL (81-100) Mean Corpuscular Hemoglobin 30.9pg (27.0-35.0) Mean Corpuscular Hemoglobin Concent 29.8% (32.0-37.0) Red Cell Distribution Width 12.9% (12.3-15.4) Platelet Count 257bil/L (150-400) Neutrophils (%) (Auto) 74.4% (40-74) Lymphocytes (%) (Auto) 16.9% (14-46) Monocytes (%) (Auto) 6.5% (4-12) Eosinophils (%) (Auto) 1.6% (0-5) Basophils (%) (Auto) 0.2% (0-3) Sodium Level 143mEq/L (134-144) Potassium Level 4.7mEq/L (3.5-5.2) Chloride Level 102mEq/L (97-108) Carbon Dioxide Level 32mmol/L (18-29) Blood Urea Nitrogen 51mg/dL (8-27) Creatinine 1.51mg/dL (0.57-1.00) Estimat Glomerular Filtration Rate 47mL/min (>59) Glucose Level 123mg/dL (60-99) Calcium Level 8.9mg/dL (8.5-10.1) Total Bilirubin 0.5mg/dL (0.0-1.2) Aspartate Amino Transf (AST/SGOT) 11U/L (0-50) Alanine Aminotransferase (ALT/SGPT) 6U/L (0-32) Alkaline Phosphatase 54U/L (25-165) Total Protein 7.0g/dL (6.4-8.4) Albumin 3.1g/dL (3.4-5.0) Procalcitonin 0.34ng/mL (See Comment) Test 11/06/16 23:55 Urine Color Yellow (YELLOW) Urine Appearance Cloudy (CLEAR,HAZY) Urine pH 6.0 (5.0-8.0) Urine Specific [place] 1.019 (1.003-1.035) Urine Protein 30mg/dL (NEG,TRACE) Urine Glucose (UA) Negativemg/dL (NEGATIVE) Urine Ketones Negativemg/dL (NEGATIVE) Urine Occult Blood Moderate (NEGATIVE) Urine Nitrite Negative (NEGATIVE) Urine Bilirubin Negative (NEGATIVE) Urine Urobilinogen Normalmg/dL (NORMAL) Urine Leukocyte Esterase Large (NEGATIVE) Urine RBC 11-50/hpf (0-2) Urine WBC >50/hpf (0-5) Urine Epithelial Cells Occasional/hpf (NONE-MOD) Urine Crystals None seen (NONE SEEN) Urine Bacteria Few/hpf (NONE-FEW) Urine Hyaline Casts None/lpf (NONE) Urine Granular Casts None seen (NONE SEEN) Urine Waxy Casts None seen (NONE SEEN) Urine Red Blood Cell Casts None seen (NONE SEEN) Urine White Blood Cell Casts None seen (NONE SEEN) Urine Mucus None seen (None Seen) Urine Trichomonas None seen (NONE SEEN) Urine Yeast None (NONE SEEN) Urinalysis Comment None Urine Culture Reflexed Indicated Discharge Medications Discharge Medications Atropine 1% Ophthalmic Drops (Atropine 1% Ophthalmic Drops) 1 % Drops 2 DROP SL QID Prescribed by: NICOLE JIMENEZ MD Gabapentin (Gabapentin) 300 Mg Capsule 300 MG PO TID (Reported) As needed ([Al Hydrox/Mg Hydrox/Simeth]) 30 ML SUSP 30 ML PO Q6 PRN PRN For Dyspepsia or Heartburn Prescribed by: JARETH BREWER MD Albuterol Sulfate (Proair Respiclick) 90 Mcg Aer.pow.ba 90 MCG IH QID PRN PRN For Shortness of Breath (Reported) Lorazepam Intensol (Lorazepam Intensol) 2 Mg/Ml Conc 2 MG SL/PO q 1 hr PRN PRN For Anxiety Prescribed by: NICOLE JIMENEZ MD Melatonin (Melatonin) 5 Mg Tablet 5 MG PO HS PRN PRN For Sleep Prescribed by: JARETH BREWER MD Morphine Sulfate Oral Concentrate (Roxanol Oral Concentrate) 100 Mg/5 Ml (20 Mg/ Ml) Solution 5-20 MG SL/PO q1 hr PRN PRN For Pain Prescribed by: NICOLE JIMENEZ MD Polyethylene Glycol 3350 (Miralax) 17 Gm Powd.pack 17 GM PO DAILY PRN PRN For Constipation Prescribed by: JARETH BREWER MD Scopolamine (Transderm-Scop) 1 Each Patch.td72 1 EACH TD every 3 days PRN PRN Secretion Control Prescribed by: NICOLE JIMENEZ MD Sennosides (Senna) 8.6 Mg Tablet 17.2 MG PO BID PRN PRN For Constipation Prescribed by: JARETH BREWER MD Followup Plan Follow-up plan 1. Followup with primary care provider as needed. Discharge Diet: Other (as tolerated) Discharge Activity: Other (as tolerated) Follow-up Provider: Alondra Ferris PA-C Time spent 35 minutes spent discharging this patient Zack Stewart DO Nov 08, 2016 21:26
== END 2016-11-08 13:23 | DRG 178 ==
LOC: SED 15:59 → OSC 21:45
PROVIDERS: ADMIT Specialist; ATTEND Specialist
DX: J69.0 Pneumonitis due to inhalation of food and vomit (principal); N39.0 Urinary tract infection, site not specified; R13.10 Dysphagia, unspecified; Z66 Do not resuscitate; Z99.81 Dependence on supplemental oxygen; Z91.81 History of falling; Z88.0 Allergy status to penicillin; Z79.51 Long term (current) use of inhaled steroids; Z51.5 Encounter for palliative care; Z79.82 Long term (current) use of aspirin